=== PATIENT | male | born 2000 | race Two or more races ===

== ENCOUNTER 2019-02-15 13:23 | Emergency (ER) | payer MEDICAID, OTHER ==
[~2019-02-15] VITALS: Ht 193 cm; Wt 154.2 kg
[2019-02-15 13:36] VITALS: BP 135/73
== END 2019-02-15 15:33 | disposition home or self-care (01) ==
LOC: ER 13:32
DX: D17.0 Benign lipomatous neoplasm of skin and subcutaneous tissue of head, face and neck (principal)